=== PATIENT | female | born 1975 | race Caucasian/White ===

== ENCOUNTER → 2016-10-05 | Outpatient (CLI) | payer OTHER ==
--- NOTE | ~2016-10-05 | ECH ---
Transthoracic Echocardiography Report (TTE) Demographics Patient Name LAURA ZAPATA Date of Study 10/05/2016 Patient Number [id number] Visit Number [id number] Date of 1975 Room Number Accession Number [id number] Gender Female Age 40 year(s) Referring Armaan Garcia Automated Equipment Engineer Technician Lawanda Hay Physician [facility] Physician Interpreting Kenzie Choudhury Sound Person Physician Supervising Ordering Physician Armaan Garcia MD/MLP Nurse Stress Physician Neonatology Conclusions Summary Technically good exam. The estimated left ventricular ejection fraction is 65%. The right atrium is mildly dilated. Trivial mitral regurgitation by color Doppler. Procedure Type of Study TTE procedure:Echo Complete SF. Procedure Date Date: 10/05/2016 Start: 01:02 PM Technical Quality: Good visualization Indications:Murmur. Appropriate Use Criteria: 9 Height: 66 inches Weight: 210 pounds BSA: 2.04 m Rhythm: NSR HR: 65 bpm BP: 118/70 mmHg M-Mode/2D Measurements LV Diastolic Dimension: 5.06 cm LV Systolic Dimension: 2.69 cm LV Septum Diastolic: 0.8 cm LV PW Diastolic: 0.89 cm AO Root Dimension: 2.36 cm Cardiac Output: 6.39 l/min LA Dimension: 3.55 cm Cardiac Index: 3.13 l/min*m RV Diastolic Dimension: 3.02 cm LA volume index: 32 ml/m LVOT: 1.97 cm LVOT VTI: 32.27 cm RV Base: 4 cm LV Stroke volume: 98.31 ml RV Mid: 2.5 cm LV Stroke volume index: 48.19 ml/m TAPSE: 2.8 cm TDI-S': 16 cm/s Doppler Measurements AV Peak Velocity: 1.7 m/s MV Peak E-Wave: 0.69 m/s AV Peak Gradient: 11.56 mmHg MV Peak A-Wave: 0.5 m/s AV Mean Gradient: 5.93 mmHg MV E/A Ratio: 1.38 LVOT Peak Velocity: 1.38 m/s MV P1/2t: 58.5 msec AV Area (Continuity):2.71 cm MV Deceleration Time: 285.9 msec TR Velocity:2.42 m/s MV Area (PHT): 3.76 cm TR Gradient:23.43 mmHg PV Peak Velocity: 1.07 m/s Estimated RAP:3 mmHg PV Peak Gradient: 4.59 mmHg Estimated RVSP: 26 mmHg Estimated PASP: 26.43 mmHg E' Septal Velocity: 0.13 m/s A' Septal Velocity: 0.06 m/s E' Lateral Velocity: 0.15 m/s A' Lateral Velocity: 0.08 m/s RA Area: 19.51 cm Findings Left Ventricle Normal left ventricle size and function. Diastolic assessment reveals normal relaxation. Right Ventricle Normal right ventricle structure and function. Left Atrium Normal left atrial size. Right Atrium The right atrium is mildly dilated. Mitral Valve Normal mitral valve structure and function. Trivial mitral regurgitation by color Doppler. Aortic Valve Normal aortic valve structure and function. Tricuspid Valve Normal tricuspid valve structure and function. Mild tricuspid regurgitation by color Doppler. Normal pulmonary pressures. Pulmonic Valve Normal pulmonic valve structure and function. Pericardial Effusion No evidence of pericardial effusion. Miscellaneous Visualized portions of the aortic root and ascending aorta appear normal in size. Pleural Effusion No evidence of pleural effusion. Contractility Score LV regional wall motion:(0-Non visualized 1-Normal 2-Hypokinesis 3-Akinesis 4-Dyskinesis 5-Aneurysm) Signature
== END | disposition home or self-care (01) ==
LOC: CARD 12:42
DX: R01.1 Cardiac murmur, unspecified (principal); I51.7 Cardiomegaly